=== PATIENT | female | born 1935 | race Caucasian/White ===

== ENCOUNTER → 2017-05-27 | Outpatient (CLI) | payer MEDICARE ==
--- NOTE | 2017-05-31 11:29 | MM ---
Reason for exam: screening (asymptomatic). Last mammogram was performed 1 year ago. History: Patient is postmenopausal and has history of other cancer at age 77. Physical Findings: A clinical breast exam by your physician is recommended on an annual basis and results should be correlated with mammographic findings. MG 3D Screening Mammo W/Cad Bilateral CC and MLO view(s) were taken. Prior study comparison: May 24, 2016, bilateral MG 3d screening mammo w/cad. There are scattered fibroglandular densities. No significant changes when compared with prior studies. ASSESSMENT: Negative, BI-RAD 1 RECOMMENDATION: Routine screening mammogram of both breasts in 1 year.
== END | disposition home or self-care (01) ==
LOC: RADMAMWWP 10:44
PROVIDERS: ATTEND Internal Medicine
DX: Z12.31 Encounter for screening mammogram for malignant neoplasm of breast (principal)
CPT/HCPCS: 77063; G0202

== ENCOUNTER 2017-12-10 10:03 | Emergency (ER) | payer MEDICARE ==
[2017-12-10 10:08] VITALS: RESP 18
--- NOTE | 2017-12-10 10:25 | ED ---
URI HPI - General Chief Complaint: Upper Respiratory Infection Stated Complaint: Sore throat Time Seen by Provider: 12/10/17 10:11 Source: patient Mode of arrival: ambulatory Limitations: no limitations - History of Present Illness Initial Comments: This is an 82-year-old female who presents with a chief complaint of sore throat , hoarseness and upper respiratory infection. The symptoms began 2 days ago. She began taking Augmentin yesterday prescribed by her primary care provider for an upper respiratory infection, and has taken 2 doses so far. She reports her cough is better. However, she woke up today with a hoarse voice, pain with phonation, and states that her mouth feels dry. She denies shortness of breath, nausea, vomiting, diarrhea, fevers, or chills. The patient has a significant cardiac history and currently has a pacemaker. She has a scheduled cardiac procedure with Dr. Burkett on 12/12/2017, and is concerned she will not be able to have the procedure if she is still sick. - Related Data Home Medications Medication Instructions Recorded Confirmed ALPRAZolam [Xanax] 0.25 mg PO TID PRN 09/21/17 12/10/17 Aspirin [Adult Low Dose Aspirin EC] 81 mg PO BID 09/21/17 12/10/17 Atorvastatin [Lipitor] 40 mg PO DAILY 09/21/17 12/10/17 Enalapril [Vasotec] 5 mg PO DAILY 09/21/17 12/10/17 Nitroglycerin Sl Tabs [Nitrostat] 0.4 mg SUBLINGUAL Q5M PRN 09/21/17 12/10/17 SILVER sulfADIAZINE Cream 1 applic TOPICAL DAILY 09/21/17 12/10/17 [Silvadene 1% Cream] metFORMIN HCL [Glucophage] 250 mg PO DAILY 09/21/17 12/10/17 Carvedilol [Coreg] 6.25 mg PO BID 12/01/17 12/10/17 Amiodarone [Cordarone] 200 mg PO DAILY 12/10/17 12/10/17 Spironolactone [Aldactone] 25 mg PO DAILY 12/10/17 12/10/17 Previous Rx's Medication Instructions Recorded Clopidogrel [Plavix] 75 mg PO DAILY #30 tab 09/25/17 Allergies Allergy/AdvReac Type Severity Reaction Status Date / Time No Known Allergies Allergy Verified 12/10/17 11:29 Review of Systems ROS Statement: Those systems with pertinent positive or pertinent negative responses have been documented in the HPI. ROS Other: All systems not noted in ROS Statement are negative. Past Medical History Past Medical History: Hyperlipidemia, Hypertension, Myocardial Infarction (VA), Osteoarthritis (OA), Skin Disorder, Vascular Disorder Additional Past Medical History / Comment(s): See Dr Burkett's H&P. Arthritis diffuse, chronic low back pain, sinus problems, hx cellulitis neck, eczema. VA x2 - Last Myocardial Infarction Date:: 2013 History of Any Multi-Drug Resistant Organisms: None Reported Past Surgical History: Back Surgery, Heart Catheterization With Stent, Joint Replacement, Pacemaker Additional Past Surgical History / Comment(s): PCI with a total of 3 stents, bilateral total knee replacements, low back surgery x2, R great toe bunionectomy with pin, thyroglossal duct excision for benign neck mass, colonoscopy, hemorrhoidectomy, bilateral cataract removals with lens implants. Pacemaker implanted 09/24/17. Past Anesthesia/Blood Transfusion Reactions: No Reported Reaction Date of Last Stent Placement:: 2013 Type of Cardiac Device: Permanent Pacemaker Device Placement Date:: 09/24/17 Past Psychological History: No Psychological Hx Reported Smoking Status: Never smoker Past Alcohol Use History: None Reported Past Drug Use History: None Reported - Past Family History Father Family Medical History: Cancer Additional Family Medical History / Comment(s): Father had throat cancer. He was a smoker. Mother Family Medical History: Myocardial Infarction (VA) Additional Family Medical History / Comment(s): Mother of a VA at the age of 71 yrs. General Exam Limitations: no limitations General appearance: alert, in no apparent distress Head exam: Present: atraumatic, normocephalic, normal inspection ENT exam: Present: normal exam, normal oropharynx (no inflammation, erythema, or uvula deviation noted.), mucous membranes moist Neck exam: Present: tenderness (tender in the left tonsillar region without lymphadenopathy) Respiratory exam: Present: decreased breath sounds. Absent: chest wall tenderness, accessory muscle use Cardiovascular Exam: Present: regular rate, normal rhythm, normal heart sounds. Absent: systolic murmur, diastolic murmur, rubs, gallop, clicks Extremities exam: Present: normal inspection, full ROM, normal capillary refill. Absent: tenderness, pedal edema, joint swelling, calf tenderness Back exam: Present: normal inspection Neurological exam: Present: alert, oriented X3, CN II-XII intact Psychiatric exam: Present: normal affect, normal mood Skin exam: Present: warm, dry, intact, normal color. Absent: rash Course Vital Signs 12/10/17 10:06 Temperature 97.5 F L Pulse Rate 86 Respiratory 18 Rate Blood Pressure 148/67 O2 Sat by Pulse 96 Oximetry Medical Decision Making - Medical Decision Making 82-year-old female presented emergency department for URI symptoms, hoarse voice. Patient's x-ray shows no evidence morning she is concerned because she is to have a procedure on Tuesday. Influenza was done which is negative. Patient will continue her antibiotics as prescribed by her primary care physician she denies any sore gargles and take [id number] lozenges. Return parameters were discussed. - Lab Data Lab Results 12/10/17 Range/Units 11:03 Influenza Type A RNA Not Detected (Not Detectd) Influenza Type B (PCR) Not Detected (Not Detectd) Disposition Clinical Impression: Laryngitis, Upper respiratory infection Disposition: HOME SELF-CARE Condition: Stable Instructions: Upper Respiratory Infection (ED) Additional Instructions: Please return to the Emergency Department if symptoms worsen or any other concerns. Referrals: Darek Upton MD [Primary Care Provider] - 1-2 days Time of Disposition: 11:38
--- NOTE | 2017-12-10 10:55 | XR ---
EXAMINATION TYPE: XR chest 2V DATE OF EXAM: 12/10/2017 HISTORY: Cough/pain. REFERENCE: Previous study dated 09/24/2017. FINDINGS: The lungs are overinflated. There is unipolar pacemaker place on the left. Heart size upper limits of normal. There is a calcified granuloma in the right midlung. Lungs appear otherwise clear. Pleural spaces are clear. IMPRESSION: 1. COPD. 2. EVIDENCE OF OLD GRANULOMATOUS DISEASE. 3. BORDERLINE CARDIOMEGALY.
[2017-12-10 11:59] VITALS: BP 122/58; PULSE 79; TEMP 97.6
== END 2017-12-10 11:57 | disposition home or self-care (01) ==
LOC: EC 10:03
DX: J04.0 Acute laryngitis (principal); J06.9 Acute upper respiratory infection, unspecified; E78.5 Hyperlipidemia, unspecified; I10 Essential (primary) hypertension; I25.2 Old myocardial infarction; Z79.82 Long term (current) use of aspirin; Z79.84 Long term (current) use of oral hypoglycemic drugs; Z79.899 Other long term (current) drug therapy
CPT/HCPCS: 71046; 87502; 99283

== ENCOUNTER 2017-12-12 06:41 | Day surgery (SDC) | payer MEDICARE ==
[2017-12-01 12:09] VITALS: BMI 22.4
[2017-12-12] MEDS: SODIUM CHLORIDE 0.9% 1,000 ML IV SCH (07:18)
[2017-12-12 07:31] LABS: Glucose,Whole Blood 121 mg/dL (75-99)
[2017-12-12] MEDS ORDERED: fentaNYL (PF) 50 MCG/ML 2 ML AMP ONE (08:31)
[2017-12-12] MEDS ORDERED: HEPARIN SODIUM,PORCINE 10,000 UNIT/ML 1 ML VIAL ONE (08:31)
[2017-12-12] MEDS ORDERED: PHENYLEPHRINE-0.9% NACL SYG 1 MG/10 ML SYRINGE ONE (08:31)
[2017-12-12] MEDS ORDERED: LIDOCAINE 1% INJ 10MG/ML (20 ML MDV) ONE (08:31)
[2017-12-12] MEDS ORDERED: ePHEDrine SULFATE/0.9% NACL/PF 50 MG/5 ML SYRINGE IV ONE (08:31)
[2017-12-12] MEDS ORDERED: MIDAZOLAM 2 MG/2 ML VIAL ONE (08:31)
[2017-12-12] MEDS ORDERED: ISOPROTERENOL 250 MCG/1.25 ML SYR IV ONE (08:31)
[2017-12-12] MEDS ORDERED: PROPOFOL 10 MG/ML 20 ML VIAL IV ONE (08:31)
[2017-12-12] MEDS ORDERED: ceFAZolin 2,000 MG in DEXTROSE/WATER 1 50ML.BAG IVPB STA (08:48)
[2017-12-12] MEDS ORDERED: ceFAZolin IN SWFI 2 GM/20 ML SYRINGE IVP ONE (09:00)
[2017-12-12] MEDS ORDERED: LIDOCAINE 2% INJ 20 MG/ML SQ ONE (09:11)
[2017-12-12] MEDS ORDERED: IODIXANOL 320 MG/ML 100 ML INTRAARTER ONE (09:18)
[2017-12-12] MEDS ORDERED: HEPARIN SOD,PORK IN 0.45% NACL 25,000 UNIT in 0.45% NACL 1 500ML.BAG IV ONE (09:20)
[2017-12-12] MEDS ORDERED: HEPARIN SODIUM (1,000 UNIT/ML) 1,000 UNIT in SODIUM CHLORIDE 0.9% 1,000 ML IRRIGATION ONE (09:36)
[2017-12-12] MEDS ORDERED: ALPRAZolam 0.25 MG TAB PO PRN (13:08)
[2017-12-12] MEDS ORDERED: HYDROcodone/APAP 5-325MG 1 EACH TAB PO PRN (13:10)
[2017-12-12] MEDS ORDERED: ACETAMINOPHEN TAB 325 MG TAB PO PRN (13:10)
--- NOTE | 2017-12-12 13:58 | P.PCN ---
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 Written informed consent was obtained prior to the procedure. The single chamber ICD was interrogated and reprogrammed. ICD therapies were and detections were turned off. At the end of the procedure ICD was interrogated impedance was stable. VT and VF therapies were turned on. Tachycardia parameters were enabled Under conscious sedation to venous sheaths were placed in the left femoral vein , on venous sheaths in the right femoral vein and on arterial sheath, a long sheath in the right femoral artery Diagnostic catheters placed in the heart. High right atrium, His bundle, RV, coronary sinus, left ventricle. Intracardiac echo catheter placed. LV mapping initially with the Pentaray catheter Sinus cycle length 877 ms, [place] interval 166 ms, QRS 106 ms, QT 401 ms. AH interval 86 ms, HV interval 56 ms. AV node Wenckebach block 430 ms VA Wenckebach block greater than 560 ms despite Isuprel Sinus recovery times at the cycle length of 400 ms was 478 ms Pacing the high right atrium coronary sinus and right ventricle and left ventricle 3-D anatomical mapping of the left ventricle was performed. The aortic root, LV outflow and the left ventricle anatomic shell was created with intracardiac echo. The scar was identified on intracardiac echo. This was an inferior apical scar just beyond the inferior peppery muscles. It extended at least to the mid to distal LV anteriorly The Pentaray cath was placed in the left ventricle retrogradely and voltage mapping of the left frontal was performed. An electric anatomic map was created. Late potentials were sought and tagged. The scar based linear VT ablation was performed, guided by late potentials. This mostly appeared as a single scar of less than 0.2 mV with an anterior extension. The scar borders were encircled Following complete anatomic ablation for EP study was performed on Isuprel Ventricular extra stimulation from the right ventricle as well as from the left ventricle was performed. Burst stimulation from the right ventricle is performed on Isuprel No VT was induced on or off Isuprel At the end of the procedure intracardiac echo revealed absence of pericardial effusion Patient out of the procedure well without any acute complications. Patient received IV heparin for the procedure maintaining an ACT greater than 300 seconds. This was reversed at the end of the procedure with protamine 20 mg of IV Lasix was given Intake output maintained through the procedure Procedures performed Single-chamber ICD interrogation with reprogramming before and after the procedure Comprehensive diagnostic EP study with attempted arrhythmia induction Program stimulation following Isuprel LV pacing and recording CS pacing and recording 3-D electro-anatomic mapping/CARTO Intracardiac echocardiography VT ablation, LV VT Plan ELIQUIS 5 mg twice daily for one month only then stop Hold aspirin for one month only then restart Continue Plavix continue heart failure medications continue CAD medications Reduce amiodarone from 200 mg down to 100 mg by mouth daily and consider stopping it in about 6-8 weeks Anesthesia: GETA Condition: stable Disposition: observation
[2017-12-12] MEDS ORDERED: ACETAMINOPHEN IV (For NPO) 1,000 MG/100 ML VIAL IVPB ONE (14:02)
[2017-12-12 14:12] LABS: Glucose,Whole Blood 104 mg/dL (75-99)
[2017-12-12] MEDS ORDERED: ACETAMINOPHEN IV (For NPO) 1,000 MG in EMPTY BAG 1 BAG IVPB ONE (14:30)
[2017-12-12] MEDS ORDERED: SODIUM CHLORIDE 0.9% 1,000 ML IV ONE ×2 (14:47→14:48)
[2017-12-12] MEDS: LACTATED RINGERS 1,000 ML IV SCH (16:41)
[2017-12-12 17:12] LABS: Glucose,Whole Blood 133 mg/dL (75-99)
[2017-12-12] MEDS: ASPIRIN 81 MG PO SCH (20:34)
[2017-12-12] MEDS: CARVEDILOL 6.25 MG TAB PO SCH (20:35)
[2017-12-12 20:49] LABS: Glucose,Whole Blood 149 mg/dL (75-99)
[2017-12-12] MEDS ORDERED: ATORVASTATIN 40 MG TAB PO SCH (21:00)
[2017-12-13 00:09] VITALS: RESP 16
[2017-12-13 06:54] LABS: Glucose,Whole Blood 112 mg/dL (75-99)
[2017-12-13] MEDS: LACTATED RINGERS 1,000 ML IV SCH (08:16)
[2017-12-13] MEDS: SODIUM CHLORIDE 0.9% 1,000 ML IV SCH (08:17)
[2017-12-13] MEDS: CARVEDILOL 6.25 MG TAB PO SCH (08:23)
[2017-12-13] MEDS: ASPIRIN 81 MG PO SCH (08:24)
[2017-12-13] MEDS ORDERED: SPIRONOLACTONE 25 MG TAB PO SCH (09:00)
[2017-12-13] MEDS ORDERED: CLOPIDOGREL 75 MG TAB PO SCH (09:00)
[2017-12-13] MEDS ORDERED: LISINOPRIL 10 MG TAB PO SCH (09:00)
[2017-12-13] MEDS ORDERED: AMIODARONE 200 MG TAB PO SCH (09:00)
--- NOTE | 2017-12-13 11:18 | P.DS ---
Providers Attending physician: Jorge Burkett Primary care physician: Darek Upton Pertinent Studies: Discharge summary Patient is doing well from a cardiac standpoint. She denies any pleuritic chest discomfort no undue shortness of breath no dizziness lightheadedness or palpitations. She did walk to the bathroom a few times. Groins of healed well. 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 Demarco in 1 week post VT ablation Plan - Discharge Summary Discharge Rx Participant: No New Discharge Prescriptions: New Amiodarone [Cordarone] 100 mg PO DAILY #90 tab Apixaban [Eliquis] 5 mg PO BID #60 tab Discontinued Aspirin [Adult Low Dose Aspirin EC] 81 mg PO BID Amiodarone [Cordarone] 200 mg PO DAILY No Action ALPRAZolam [Xanax] 0.25 mg PO TID PRN PRN Reason: Anxiety metFORMIN HCL [Glucophage] 250 mg PO DAILY Atorvastatin [Lipitor] 40 mg PO HS Enalapril [Vasotec] 5 mg PO DAILY Nitroglycerin Sl Tabs [Nitrostat] 0.4 mg SUBLINGUAL Q5M PRN PRN Reason: Chest Pain SILVER sulfADIAZINE Cream [Silvadene 1% Cream] 1 applic TOPICAL DAILY Clopidogrel [Plavix] 75 mg PO DAILY #30 tab Carvedilol [Coreg] 6.25 mg PO BID Spironolactone [Aldactone] 25 mg PO DAILY Discharge Medication List ALPRAZolam [Xanax] 0.25 mg PO TID PRN 09/21/17 [History] Atorvastatin [Lipitor] 40 mg PO HS 09/21/17 [History] Enalapril [Vasotec] 5 mg PO DAILY 09/21/17 [History] Nitroglycerin Sl Tabs [Nitrostat] 0.4 mg SUBLINGUAL Q5M PRN 09/21/17 [History] SILVER sulfADIAZINE Cream [Silvadene 1% Cream] 1 applic TOPICAL DAILY 09/21/17 [ History] metFORMIN HCL [Glucophage] 250 mg PO DAILY 09/21/17 [History] Clopidogrel [Plavix] 75 mg PO DAILY #30 tab 09/25/17 [Rx] Carvedilol [Coreg] 6.25 mg PO BID 12/01/17 [History] Spironolactone [Aldactone] 25 mg PO DAILY 12/10/17 [History] Amiodarone [Cordarone] 100 mg PO DAILY #90 tab 12/12/17 [Rx] Apixaban [Eliquis] 5 mg PO BID #60 tab 12/12/17 [Rx] Follow up Appointment(s)/Referral(s): Ajith Demarco MD [STAFF PHYSICIAN] - 1 Week Activity/Diet/Wound Care/Special Instructions: Post EP study - Ablation instructions 1. Keep access sites dry for 2 days. 2. No heavy lifting or straining for 2 days. 3. Avoid bending the hips repeatedly for 2 days. 4. You may go up and down stairs slowly Call if the following is noted 1. Bleeding, increasing swelling or pain at the access sites. 2. Increasing chest discomfort, especially upon taking a deep breath. 3. Increasing shortness of breath, at rest or with exertion. 4. Undue cough / phlegm 5. Difficulty or pain while swallowing. 6. Pain or change in color in the extremities. 7. Fever, chills, rigors. 8. Increasing headache or neurologic symptoms. 9. Dizziness, fainting, palpitations Reduce amiodarone to 100 mg by mouth daily continue all other medications ELIQUIS 5 mg twice daily for one month only Hold aspirin for one month only then resume after ELIQUIS is discontinued Continue Plavix Continue all other medications [employer] Eliquis at [facility] - coupon is there to receive a free month of Eliquis Discharge Disposition: HOME SELF-CARE
[2017-12-13 11:36] VITALS: BP 115/55; PULSE 78; TEMP 98.5
[2017-12-13] MEDS ORDERED: APIXABAN 5 MG TAB PO ONE (12:00)
[2017-12-13 12:21] LABS: Glucose,Whole Blood 136 mg/dL (75-99)
--- NOTE | 2017-12-13 13:39 | P.PCN ---
Preoperative Diagnosis: Post VT ablation device interrogation Single chamber ICD [employer] [id number] We pacing threshold 0.5 mV at 0.5 ms, R waves greater than 12 mV, pacing impedance 700 ohms and high-voltage impedance 75 ohms Appropriate antitachycardia pacing cardioversion and defibrillation programming changes made to the ATP upper cutoff rate to 200 ms and and distorted EGM configuration. Impedance monitoring on
[2017-12-14] MEDS ORDERED: metFORMIN 500 MG TAB PO SCH (10:00)
== END 2017-12-13 15:06 | disposition home or self-care (01) ==
LOC: CATHEP 06:41 → 3OBS 12:53 → CATHEP 12-13 15:06
PROVIDERS: ATTEND Internal Medicine Clinical Cardiac Electrophysiology
DX: I47.2 Ventricular tachycardia (principal); I25.2 Old myocardial infarction; I25.10 Atherosclerotic heart disease of native coronary artery without angina pectoris; I10 Essential (primary) hypertension; I25.5 Ischemic cardiomyopathy; Z87.891 Personal history of nicotine dependence; E78.5 Hyperlipidemia, unspecified; E78.00 Pure hypercholesterolemia, unspecified; Z82.49 Family history of ischemic heart disease and other diseases of the circulatory system; Z95.5 Presence of coronary angioplasty implant and graft; Z95.810 Presence of automatic (implantable) cardiac defibrillator; E11.9 Type 2 diabetes mellitus without complications; Z79.84 Long term (current) use of oral hypoglycemic drugs; F41.9 Anxiety disorder, unspecified; Z79.02 Long term (current) use of antithrombotics/antiplatelets; Z79.82 Long term (current) use of aspirin; Z79.899 Other long term (current) drug therapy
CPT/HCPCS: 93623; 93662; 93654; 85347; C1894; C1769 ×2; C1731; C1759; C1893; C1732; C1730; J2001 ×2; J2250; J1644 ×3; Q9967; J3010; J0131; J2370; J2704; J0690

== ENCOUNTER → 2018-08-29 | Outpatient (CLI) | payer MEDICARE ==
--- NOTE | 2018-08-29 09:50 | US ---
EXAMINATION TYPE: US liver DATE OF EXAM: 08/29/2018 COMPARISON: US 10/06/2017 CLINICAL HISTORY: R94.5 Abn liver function test. EXAM MEASUREMENTS: Liver Length: 15.1 cm Gallbladder Wall: 0.1 cm CBD: 1.1 cm Right Kidney: 9.5 x 4.1 x 4.2 cm Pancreas: Tail obscured by overlying bowel gas Liver: Heterogeneous, Slightly nodular contour. No hepatic masses seen. Gallbladder: wnl Evidence for sonographic Echevarria's sign: No CBD: Dilated as seen on the prior exam Right Kidney: No hydronephrosis or masses seen IMPRESSION: 1. Persistent intrahepatic biliary ductal dilatation as seen on the ultrasound dated 10/06/2017, jimmy trevizo in degree. MRCP could evaluate for biliary stricture, choledocholithiasis, or ampullary mass MRCP with contrast is performed. 2. Coarsened hepatic echotexture suggesting underlying hepatocellular disease. No focal hepatic ambar s seen on today's examination.
== END | disposition home or self-care (01) ==
LOC: RADUSWWP 07:27
PROVIDERS: ATTEND Internal Medicine
DX: K83.8 Other specified diseases of biliary tract (principal)
CPT/HCPCS: 76705

== ENCOUNTER → 2018-09-18 | Outpatient (CLI) | payer MEDICARE ==
--- NOTE | 2018-09-18 23:12 | BD ---
EXAMINATION TYPE: Axial Bone Density DATE OF EXAM: 09/18/2018 COMPARISON: NONE CLINICAL HISTORY: 83-year-old female postmenopausal screening Height: 65 Weight: 142.9 FRAX RISK QUESTIONS: Alcohol (3 or more units per day): no Family History (Parent hip fracture): no Glucocorticoids (More than 3mos): no (Ex: prednisone, prednisolone, methylprednisolone, dexamethasone, and hydrocortisone). History of Fracture in Adulthood: no Secondary Osteoporosis: 1. Type 1 Diabetes: no 2. Hyperthyroidism: no 3. Menopause before 45: yes 4. Malnutrition: no 5. Chronic liver disease: no Rheumatoid Arthritis: yes Current Tobacco Use: no RISK FACTORS HISTORY OF: Surgery to Spine/Hip(right/left)/Wrist (right/left): lumbar spine When: age 40and age 42 Family History of Osteoporosis: no Active: yes Diet low in dairy products/other sources of calcium: no Postmenopausal woman: age 40 Lost more than 2 inches in height since high school: no MEDICATIONS: heart meds, cortisone shot every 3 months in shoulder Additional History: EXAM MEASUREMENTS: Bone mineral densitometry was performed using the [employer] System. Bone mineral density about the R hip (g/cm2): 0.840 Bone mineral density about the L hip (g/cm2): 0.796 T Score values are as follows: -----R Neck: -1.4 -----L Neck: -1.7 -----R Total: -0.9 -----L Total: -1.3 Bone mineral density has: decreased -7.8 % since study of: 4. Bone mineral density about the L Wrist (g/cm2): 0.540 T Score values are as follows: -----Dist. R+U: -2.4 -----Prox. R+U: -1.5 -----Radius total: -2.2 Bone mineral density baseline IMPRESSION: Osteopenia (T Score between -2.5 and -1) as measured in the left wrist and bilateral hips. There is slightly increased risk of fracture and the patient may be considered for treatment. Re-Screen 2-5 years. NOTE: T-SCORE=SD OF THE YOUNG ADULT MEAN.
--- NOTE | 2018-09-19 13:43 | MM ---
Reason for exam: screening (asymptomatic). Last mammogram was performed 1 year and 4 months ago. History: Patient is postmenopausal and has history of other cancer at age 77. Physical Findings: A clinical breast exam by your physician is recommended on an annual basis and results should be correlated with mammographic findings. MG 3D Screening Mammo W/Cad Bilateral CC and MLO view(s) were taken. Prior study comparison: May 27, 2017, bilateral MG 3d screening mammo w/cad. May 24, 2016, bilateral MG 3d screening mammo w/cad. The breast tissue is heterogeneously dense. This may lower the sensitivity of mammography. There are benign appearing round vascular calcifications bilaterally. There is no dominant lesion. There is no discrete abnormality. New left axillary pacemaker noted. ASSESSMENT: Benign, BI-RAD 2 RECOMMENDATION: Routine screening mammogram of both breasts in 1 year.
== END | disposition home or self-care (01) ==
LOC: RADMAMWWP 15:03
PROVIDERS: ATTEND Internal Medicine
DX: Z12.31 Encounter for screening mammogram for malignant neoplasm of breast (principal); M85.88 Other specified disorders of bone density and structure, other site; N95.1 Menopausal and female climacteric states
CPT/HCPCS: 77063; 77067; 77080

== ENCOUNTER → 2018-10-05 | Outpatient (CLI) | payer MEDICARE ==
[2018-10-05 20:07] LABS: Albumin 4.6 g/dL (3.80-4.90); Albumin/Globulin Ratio 2.56 (1.20-2.10); Anion Gap 9.7 mmol/L (4.00-12.00); Calcium 10.1 mg/dL (8.7-10.3); Carbon Dioxide 25.3 mmol/L (21.6-31.8); Globulin 1.8 g/dL (2.1-3.7); Potassium 4.5 mmol/L (3.5-5.5); Total Bilirubin 0.4 mg/dL (0.3-1.2); Total Protein 6.4 g/dL (6.2-8.2)
[2018-10-05 21:16] LABS: Hepatitis C IgG Antibody Non-Reactive (Non-Reactive)
== END | disposition home or self-care (01) ==
LOC: LABWHC1 12:00
PROVIDERS: ATTEND Internal Medicine Gastroenterology
DX: R94.5 Abnormal results of liver function studies (principal)
CPT/HCPCS: 36415; 80053; 86803; 87340

== ENCOUNTER → 2019-05-01 | Outpatient (CLI) | payer MEDICARE ==
--- NOTE | 2019-05-02 07:12 | US ---
EXAMINATION TYPE: US kidneys/renal and bladder DATE OF EXAM: 05/01/2019 COMPARISON: NONE CLINICAL HISTORY: R10.9 TARA FLANK PAIN. Back pain x 10 days EXAM MEASUREMENTS: Right Kidney: 9.5 x 4.1 x 5.1 cm Left Kidney: 9.4 x 4.6 x 4.2 cm Right Kidney: wnl Left Kidney: wnl Bladder: wnl Bilateral Jets seen: yes There is no evidence for hydronephrosis at this point in time. No nephrolithiasis is seen. No ambar s are identified. The urinary bladder is anechoic. Bilateral ureteral jets are seen. IMPRESSION: No hydronephrosis or nephrolithiasis seen.
== END | disposition home or self-care (01) ==
LOC: RADUSWWP 15:15
PROVIDERS: ATTEND Internal Medicine
DX: R10.9 Unspecified abdominal pain (principal)
CPT/HCPCS: 76770

== ENCOUNTER → 2019-08-02 | Outpatient (CLI) | payer MEDICARE ==
--- NOTE | 2019-08-03 08:11 | XR ---
EXAMINATION TYPE: XR lumbosacral spine min 4V DATE OF EXAM: 08/02/2019 CLINICAL HISTORY: Low back pain TECHNIQUE: Frontal, lateral, and oblique images of the lumbar spine are obtained. COMPARISON: None FINDINGS: There are 5 lumbar type vertebral bodies identified. Postsurgical changes are seen at L5- S1. There is diffuse osseous demineralization. There is a reverse S-shaped scoliosis of the visualize d thoracolumbar spine. Large amount of retained fecal stasis in the visualized nondilated bowel. Calc ifications are seen in the region of the pancreas, sequela chronic pancreatitis. Extensive atheromato us changes of the abdominal aorta. Oblique images demonstrate neural foraminal narrowing bilaterally at L2-L3 and L3-L4. Lateral image d emonstrates grade 1 anterolisthesis of L1 and L2 and multiple posterior projecting osteophytes as wel l as anterior projecting osteophytes, intervertebral disc space narrowing, facet arthropathy, and end plate sclerosis. Vertebral body heights are overall maintained. IMPRESSION: 1. No acute fracture or lumbar spine. 2. Extensive multilevel degenerative disc disease of the lumbar spine. Grade 1 anterolisthesis of L1 on L2 is likely on a degenerative basis. 3. Sequela chronic pancreatitis, densely calcified aorta, and large degree of colonic fecal stasis ar e incidentally seen. 4. Reverse S-shaped scoliosis of the visualized thoracolumbar spine.
== END | disposition home or self-care (01) ==
LOC: RADXRMAIN 16:48
PROVIDERS: ATTEND Internal Medicine
DX: M51.36 Other intervertebral disc degeneration, lumbar region (principal); M43.16 Spondylolisthesis, lumbar region; K86.1 Other chronic pancreatitis; I70.0 Atherosclerosis of aorta; K59.8 Other specified functional intestinal disorders; M41.85 Other forms of scoliosis, thoracolumbar region
CPT/HCPCS: 72110

== ENCOUNTER → 2019-10-15 | Outpatient (CLI) | payer MEDICARE ==
--- NOTE | 2019-10-16 10:33 | MM ---
Reason for exam: screening (asymptomatic). Last mammogram was performed 1 year and 1 month ago. History: Patient is postmenopausal and has history of other cancer at age 77. Physical Findings: A clinical breast exam by your physician is recommended on an annual basis and results should be correlated with mammographic findings. MG 3D Screening Mammo W/Cad Bilateral CC and MLO view(s) were taken. Prior study comparison: September 18, 2018, bilateral MG 3d screening mammo w/cad. May 27, 2017, bilateral MG 3d screening mammo w/cad. The breast tissue is heterogeneously dense. This may lower the sensitivity of mammography. There are benign appearing vascular calcifications bilaterally. There is no discrete abnormality. ASSESSMENT: Benign, BI-RAD 2 RECOMMENDATION: Routine screening mammogram of both breasts in 1 year.
== END | disposition home or self-care (01) ==
LOC: RADMAMWWP 14:43
PROVIDERS: ATTEND Internal Medicine
DX: Z12.31 Encounter for screening mammogram for malignant neoplasm of breast (principal)
CPT/HCPCS: 77063; 77067

== ENCOUNTER 2019-12-15 13:20 | Emergency (ER) | payer MEDICARE ==
[2019-12-15 13:35] VITALS: BP 128/71; PULSE 84; RESP 18; TEMP 97.9
--- NOTE | 2019-12-15 13:51 | ED ---
General Adult HPI - General Chief complaint: Skin/Abscess/Foreign Body Stated complaint: leg injury Time Seen by Provider: 12/15/19 13:33 Source: patient Mode of arrival: ambulatory Limitations: no limitations - History of Present Illness Initial comments: Dictation was produced using [employer] dictation software. please excuse any grammatical, word or spelling errors. Chief Complaint: 84-year-old female presents with one check. History of Present Illness: 84 yo female multiple comorbidities presents for wound check. Patient suffered a skin injury approximately 2 weeks ago. She just completed a course of antibiotics. Patient was initially seen after suffering an injury to her right lower extremity from a car door. She suffered an avulsion wound. Patient has delicate skin. She seen her primary care doctor shortly after that was placed on a course of doxycycline. Patient was concerned about the appearance of her waking to the emergency department. She denies any worsening pain. No redness. Denies any constitutional symptoms. The ROS documented in this emergency department record has been reviewed and confirmed by me. Those systems with pertinent positive or negative responses have been documented in the HPI. All other systems are other negative and/or noncontributory. PHYSICAL EXAM: General Impression: Alert and oriented x3, not in acute distress HEENT: Normocephalic atraumatic, extra-ocular movements intact, pupils equal and reactive to light bilaterally, mucous membranes moist. Cardiovascular: Heart regular rate and rhythm, S1&S2 audible, no murmurs, rubs or gallops Chest: Lungs clear to auscultation bilaterally, no rhonchi, no wheeze, no rales Abdomen: Bowel sounds present, abdomen soft, non-tender, non-distended, no organomegaly Musculoskeletal: Pulses present and equal in all extremities, no peripheral edema Motor: no focal deficits noted Neurological: CN II-XII grossly intact, no focal motor or sensory deficits noted Skin: 2 x 2 centimeter lesion over the anterior right tibial area. There is good well-healing granulation tissue with some fibrinous exudates. No drainage or induration or surrounding erythema. Psych: Normal affect and mood ED course: 84-year-old female presents for wound check. Wound appears well. No signs of infection. Patient given dressing supplies. She is told to do dressing changes every 12 hours to follow-up with her primary care doctor. Discussed with patient what would warrant return to the emergency department or seek medical attention. Patient understandable agreeable to plan. - Related Data Home Medications Medication Instructions Recorded Confirmed ALPRAZolam [Xanax] 0.25 mg PO TID PRN 09/21/17 12/10/17 Atorvastatin [Lipitor] 40 mg PO HS 09/21/17 12/12/17 Enalapril [Vasotec] 5 mg PO DAILY 09/21/17 12/12/17 Nitroglycerin Sl Tabs [Nitrostat] 0.4 mg SUBLINGUAL Q5M PRN 09/21/17 12/10/17 SILVER sulfADIAZINE Cream 1 applic TOPICAL DAILY 09/21/17 12/12/17 [Silvadene 1% Cream] metFORMIN HCL [Glucophage] 250 mg PO DAILY 09/21/17 12/12/17 Carvedilol [Coreg] 6.25 mg PO BID 12/01/17 12/12/17 Spironolactone [Aldactone] 25 mg PO DAILY 12/10/17 12/12/17 Previous Rx's Medication Instructions Recorded Clopidogrel [Plavix] 75 mg PO DAILY #30 tab 09/25/17 Amiodarone [Cordarone] 100 mg PO DAILY #90 tab 12/12/17 Apixaban [Eliquis] 5 mg PO BID #60 tab 12/12/17 Allergies Allergy/AdvReac Type Severity Reaction Status Date / Time No Known Allergies Allergy Verified 12/15/19 13:35 Review of Systems ROS Statement: Those systems with pertinent positive or pertinent negative responses have been documented in the HPI. ROS Other: All systems not noted in ROS Statement are negative. Past Medical History Past Medical History: Hyperlipidemia, Hypertension, Myocardial Infarction ([place]), Osteoarthritis (OA), Skin Disorder, Vascular Disorder Additional Past Medical History / Comment(s): See Dr Burkett's H&P. Arthritis diffuse, chronic low back pain, sinus problems, hx cellulitis neck, eczema. [place] x2 - Last Myocardial Infarction Date:: 2013 History of Any Multi-Drug Resistant Organisms: None Reported Past Surgical History: Back Surgery, Heart Catheterization With Stent, Joint Re placement, Pacemaker Additional Past Surgical History / Comment(s): PCI with a total of 3 stents, bilateral total knee replacements, low back surgery x2, R great toe bunionectomy with pin, thyroglossal duct excision for benign neck mass, colonoscopy, hemorrhoidectomy, bilateral cataract removals with lens implants. Pacemaker implanted 09/24/17. Past Anesthesia/Blood Transfusion Reactions: No Reported Reaction Date of Last Stent Placement:: 2013 Type of Cardiac Device: Permanent Pacemaker Device Placement Date:: 09/24/17 Past Psychological History: No Psychological Hx Reported Smoking Status: Never smoker Past Alcohol Use History: None Reported Past Drug Use History: None Reported - Past Family History Father Family Medical History: Cancer Additional Family Medical History / Comment(s): Father had throat cancer. He was a smoker. Mother Family Medical History: Myocardial Infarction ([place]) Additional Family Medical History / Comment(s): Mother of a [place] at the age of 71 yrs. General Exam Limitations: no limitations Course Vital Signs 12/15/19 13:32 Temperature 97.9 F Pulse Rate 84 Respiratory 18 Rate Blood Pressure 128/71 O2 Sat by Pulse 97 Oximetry Disposition Clinical Impression: Visit for wound check Disposition: HOME SELF-CARE Condition: Good Instructions (If sedation given, give patient instructions): Wound Infection (ED) Is patient prescribed a controlled substance at d/c from ED?: No Referrals: Darek Upton MD [Primary Care Provider] - 1-2 days Time of Disposition: 13:51
== END 2019-12-15 14:00 | disposition home or self-care (01) ==
LOC: EC 13:20
DX: Z48.00 Encounter for change or removal of nonsurgical wound dressing (principal); E78.5 Hyperlipidemia, unspecified; I10 Essential (primary) hypertension; I25.2 Old myocardial infarction; M19.90 Unspecified osteoarthritis, unspecified site; Z79.899 Other long term (current) drug therapy; Z95.5 Presence of coronary angioplasty implant and graft; Z96.653 Presence of artificial knee joint, bilateral; Z95.0 Presence of cardiac pacemaker
CPT/HCPCS: 99282

== ENCOUNTER → 2020-02-13 | Outpatient (CLI) | payer MEDICARE ==
--- NOTE | 2020-02-13 14:38 | US ---
EXAMINATION TYPE: US venous doppler duplex LE RT DATE OF EXAM: 02/13/2020 2:26 PM COMPARISON: NONE CLINICAL HISTORY: R lower extremity swelling R22.41. SIDE PERFORMED: Right TECHNIQUE: The lower extremity deep venous system is examined utilizing real time linear array sonog elsa with graded compression, doppler sonography and color-flow sonography. VESSELS IMAGED: External Iliac Vein (EIV) Common Femoral Vein Deep Femoral Vein Greater Saphenous Vein * Femoral Vein Popliteal Vein Small Saphenous Vein * Proximal Calf Veins (* superficial vessels) Right Leg: Negative for DVT IMPRESSION: No evidence for DVT at this time.
== END | disposition home or self-care (01) ==
LOC: RADUSMAIN 13:57
PROVIDERS: ATTEND Internal Medicine
DX: R22.41 Localized swelling, mass and lump, right lower limb (principal); Z88.0 Allergy status to penicillin

== ENCOUNTER 2020-06-08 12:55 | Emergency (ER) | payer MEDICARE ==
[2020-06-08 13:07] VITALS: BP 120/72; PULSE 85; RESP 18; TEMP 98.3
[2020-06-08] MEDS ORDERED: TOPICAL SKIN ADHESIVE 1 EACH AMP TOPICAL STA (13:16)
--- NOTE | 2020-06-08 13:19 | ED ---
Wound/Laceration HPI - General Chief Complaint: Wound/Laceration Stated Complaint: Arm injury Time Seen by Provider: 06/08/20 13:11 Source: patient, RN notes reviewed, old records reviewed Mode of arrival: ambulatory Limitations: no limitations - History of Present Illness Initial Comments: This is a 4-year-old female DF she presents today for evaluation of skin tear. Patient states she is well-controlled by dorsal foot skin tear to her left forearm. Minimal bleeding has had a bandage and wrapped currently no other issues or injuries noted. Patient has no other significant complaints. -: minutes(s) Extremity Location: Left: Forearm Place: home Patient Tetanus UTD: Yes Context: accidental Associated Symptoms: none - Related Data Home Medications Medication Instructions Recorded Confirmed ALPRAZolam [Xanax] 0.25 mg PO TID PRN 09/21/17 12/10/17 Atorvastatin [Lipitor] 40 mg PO HS 09/21/17 12/12/17 Enalapril [Vasotec] 5 mg PO DAILY 09/21/17 12/12/17 Nitroglycerin Sl Tabs [Nitrostat] 0.4 mg SUBLINGUAL Q5M PRN 09/21/17 12/10/17 SILVER sulfADIAZINE Cream 1 applic TOPICAL DAILY 09/21/17 12/12/17 [Silvadene 1% Cream] metFORMIN HCL [Glucophage] 250 mg PO DAILY 09/21/17 12/12/17 Carvedilol [Coreg] 6.25 mg PO BID 12/01/17 12/12/17 Spironolactone [Aldactone] 25 mg PO DAILY 12/10/17 12/12/17 Previous Rx's Medication Instructions Recorded Clopidogrel [Plavix] 75 mg PO DAILY #30 tab 09/25/17 Amiodarone [Cordarone] 100 mg PO DAILY #90 tab 12/12/17 Apixaban [Eliquis] 5 mg PO BID #60 tab 12/12/17 Allergies Allergy/AdvReac Type Severity Reaction Status Date / Time No Known Allergies Allergy Verified 06/08/20 13:05 Review of Systems ROS Statement: Those systems with pertinent positive or pertinent negative responses have been documented in the HPI. ROS Other: All systems not noted in ROS Statement are negative. Past Medical History Past Medical History: Hyperlipidemia, Hypertension, Myocardial Infarction ([place]), Osteoarthritis (OA), Skin Disorder, Vascular Disorder Additional Past Medical History / Comment(s): See Dr Burkett's H&P. Arthritis diffuse, chronic low back pain, sinus problems, hx cellulitis neck, eczema. [place] x2 - Last Myocardial Infarction Date:: 2013 History of Any Multi-Drug Resistant Organisms: None Reported Past Surgical History: Back Surgery, Heart Catheterization With Stent, Joint Replacement, Pacemaker Additional Past Surgical History / Comment(s): PCI with a total of 3 stents, bilateral total knee replacements, low back surgery x2, R great toe bunionectomy with pin, thyroglossal duct excision for benign neck mass, colonoscopy, hemorrhoidectomy, bilateral cataract removals with lens implants. Pacemaker implanted 09/24/17. Past Anesthesia/Blood Transfusion Reactions: No Reported Reaction Date of Last Stent Placement:: 2013 Type of Cardiac Device: Permanent Pacemaker Device Placement Date:: 09/24/17 Past Psychological History: No Psychological Hx Reported Smoking Status: Never smoker Past Alcohol Use History: None Reported Past Drug Use History: None Reported - Past Family History Father Family Medical History: Cancer Additional Family Medical History / Comment(s): Father had throat cancer. He was a smoker. Mother Family Medical History: Myocardial Infarction ([place]) Additional Family Medical History / Comment(s): Mother of a [place] at the age of 71 yrs. General Exam - General Exam Comments Initial Comments: Small skin tear left forearm is approximated well Limitations: no limitations General appearance: alert, in no apparent distress Head exam: Present: atraumatic, normocephalic, normal inspection Eye exam: Present: normal appearance, PERRL, EOMI. Absent: scleral icterus, conjunctival injection, periorbital swelling ENT exam: Present: normal exam, mucous membranes moist Neck exam: Present: normal inspection. Absent: tenderness, meningismus, lymphadenopathy Respiratory exam: Present: normal lung sounds bilaterally. Absent: respiratory distress, wheezes, rales, rhonchi, stridor Cardiovascular Exam: Present: regular rate, normal rhythm, normal heart sounds. Absent: systolic murmur, diastolic murmur, rubs, gallop, clicks GI/Abdominal exam: Present: soft, normal bowel sounds. Absent: distended, tenderness, guarding, rebound, rigid Extremities exam: Present: normal inspection, full ROM, normal capillary refill. Absent: tenderness, pedal edema, joint swelling, calf tenderness Back exam: Present: normal inspection Neurological exam: Present: alert, oriented X3, CN II-XII intact Psychiatric exam: Present: normal affect, normal mood Skin exam: Present: warm, dry, intact, normal color. Absent: rash Course Vital Signs 06/08/20 13:05 Temperature 98.3 F Pulse Rate 85 Respiratory 18 Rate Blood Pressure 120/72 O2 Sat by Pulse 97 Oximetry - Reevaluation(s) Reevaluation #1: 06/08/20 13:17 Medical records reviewed Reevaluation #2: 06/08/20 13:17 Skin tear is cleaned approximated has Dermabond placed Procedures - Laceration Laceration #1 Consent Obtained: verbal consent Indication: other (skin tear) Size (cm): 6 Depth: simple, single layer Type of Sutures: other (dermabond) Size of Sutures: other (dermabond) Complications: pain Patient Tolerated Procedure: well Medical Decision Making - Medical Decision Making 84 female to the ER for evaluation patient resents today for evaluation regards to skin tear. Skin tear is repaired here in the ER patient can be discharged home Disposition Clinical Impression: Abrasion, Skin tear Disposition: HOME SELF-CARE Condition: Good Instructions (If sedation given, give patient instructions): Skin Tear (ED) Is patient prescribed a controlled substance at d/c from ED?: No Referrals: Darek Upton MD [Primary Care Provider] - 1-2 days
== END 2020-06-08 13:53 | disposition home or self-care (01) ==
LOC: EC 12:55
DX: S51.812A Laceration without foreign body of left forearm, initial encounter (principal); E78.5 Hyperlipidemia, unspecified; I10 Essential (primary) hypertension; I25.2 Old myocardial infarction; Z79.84 Long term (current) use of oral hypoglycemic drugs; Z79.899 Other long term (current) drug therapy; Z79.02 Long term (current) use of antithrombotics/antiplatelets; Z96.653 Presence of artificial knee joint, bilateral; W22.8XXA Striking against or struck by other objects, initial encounter; Y93.01 Activity, walking, marching and hiking
CPT/HCPCS: 12002; 99283

== ENCOUNTER → 2020-07-15 | Outpatient (CLI) | payer MEDICARE ==
--- NOTE | 2020-07-16 21:35 | CT ---
EXAMINATION TYPE: CT lumbar spine wo con DATE OF EXAM: 07/15/2020 3:23 PM COMPARISON: Lumbar radiograph 08/02/2019. HISTORY: chronic low back pain. Hx of lumbar sx years ago. CT DLP: 533.4 mGycm Automated exposure control for dose reduction was used. Unenhanced CT of the lumbar spine was performed. Bone and soft tissue window settings are submitted as well as coronal and sagittal reconstructions. Posterior postsurgical changes at L5, S1, and the inferior sacrum. Decreased osseous mineralization. Straightening of the lumbar lordosis. Diffuse disc space narrowing, degenerative endplate changes, osteophytic spurring, and facet arthropathy. There is compression deformity of T12 up to 30% involving the superior endplate, and inferior endplat es Schmorl's node. This compression deformity was not seen on 08/02/2019 radiograph comparison. L1-L2: Severe central stenosis. Severe right neural foramina narrowing. L2-L3: Mild central stenosis with right subarticular superimposed disc osteophyte. Moderate bilateral neural foramina narrowing. L3-L4: Indention of the ventral aspect of the thecal sac. Mild right and severe left neural foramina narrowing. L4-L5: Mild central stenosis. Severe left neural foramina narrowing. L5-S1: Central canal is obscured due to postsurgical hardware. No significant neural foramina narrowi ng. IMPRESSION: 1. Age-indeterminate compression deformity of the T12 superior endplate up to 30%, not present on 08/02/2019 radiograph comparison. Recommend correlation with point tenderness. 2. Marked degenerative changes of the lumbar spine, with severe central stenosis at L1-L2. Varying de grees of neural foramina narrowing. 3. Central canal L5-S1 is not evaluated due to post surgical hardware streak artifact.
== END | disposition home or self-care (01) ==
LOC: RADCTMAIN 15:05
PROVIDERS: ATTEND Physical Medicine & Rehabilitation
DX: M48.061 Spinal stenosis, lumbar region without neurogenic claudication (principal); M47.816 Spondylosis without myelopathy or radiculopathy, lumbar region; M96.1 Postlaminectomy syndrome, not elsewhere classified; M16.0 Bilateral primary osteoarthritis of hip; Z98.1 Arthrodesis status; Z95.0 Presence of cardiac pacemaker; Z95.9 Presence of cardiac and vascular implant and graft, unspecified
CPT/HCPCS: 72131

== ENCOUNTER → 2020-08-01 | Outpatient (CLI) | payer MEDICARE ==
--- NOTE | 2020-08-01 15:53 | NM ---
EXAMINATION TYPE: NM bone scan whole body DATE OF EXAM: 08/01/2020 COMPARISON: CT lumbar spine July 15, 2020 HISTORY: Mid and low back pain for a couple months. History of rheumatoid arthritis per patient. Hist ory of lumbosacral fusion surgery 40 years ago and bilateral knee replacement 10 years ago. Spondylos is, scoliosis, spondylolisthesis, post laminectomy syndrome, paresthesia of scan, and spinal stenosis follow-up were ordered. Delayed whole-body scanning was performed following the injection of 22.2 mCi Tc 99m MDP. Images acq uired 4 hours post injection. Anterior and posterior projection whole body images along with multiple projections of the thorax abdomen and pelvis. FINDINGS: S-shaped scoliotic curvature of thoracolumbar spine is present. Increased radiotracer uptake left mid to lower lumbar spine corresponds to increased narrowing and spurring at left L3-L4 level, similar m ild radiotracer uptake upper lumbar spine extending to right of midline corresponds to increased narr owing and sclerosis at the right L1-L2 level. There is more diffuse uptake involving the T11 vertebra, this could reflect acute compression type fr acture, correlate clinically and with dedicated plain films. Lucency from bilateral knee total arthroplasty is present. Asymmetric increased uptake right glenohumeral joint likely reflects advanced degenerative change at this level, correlate clinically. Increased focal radiotracer uptake left sternoclavicular joint could reflect product of degenerative change, correlate clinically. IMPRESSION: As above.
== END | disposition home or self-care (01) ==
LOC: RADNMMAIN 10:48
PROVIDERS: ATTEND Physical Medicine & Rehabilitation
DX: M41.85 Other forms of scoliosis, thoracolumbar region (principal); R93.7 Abnormal findings on diagnostic imaging of other parts of musculoskeletal system; S22.089A Unspecified fracture of T11-T12 vertebra, initial encounter for closed fracture; Z96.653 Presence of artificial knee joint, bilateral
CPT/HCPCS: 78306; A9503

== ENCOUNTER → 2020-08-01 | Outpatient (CLI) | payer MEDICARE ==
--- NOTE | 2020-08-01 11:20 | US ---
EXAMINATION TYPE: US kidneys/renal and bladder DATE OF EXAM: 08/01/2020 COMPARISON: US 05/01/2019 CLINICAL HISTORY: Bilateral Flank Pain R10.9. EXAM MEASUREMENTS: Right Kidney: 9.4 x 4.1 x 3.9 cm Left Kidney: 9.2 x 3.7 x 3.6 cm Right Kidney: No hydronephrosis or masses seen Left Kidney: No hydronephrosis or masses seen Bladder: Not fully distended Bilateral Jets seen: Right jet visualized only There is no evidence for hydronephrosis at this point in time. No nephrolithiasis is seen. No ambar s are identified. The urinary bladder is anechoic. Right jet visualized IMPRESSION: No distinct abnormality seen.
== END | disposition home or self-care (01) ==
LOC: RADUSWWP 10:27
PROVIDERS: ATTEND Internal Medicine
DX: R10.9 Unspecified abdominal pain (principal)
CPT/HCPCS: 76770

== ENCOUNTER → 2021-08-03 | Outpatient (CLI) | payer MEDICARE ==
--- NOTE | 2021-08-03 09:11 | CT ---
EXAMINATION TYPE: CT hip LT wo con DATE OF EXAM: 08/03/2021 COMPARISON: Whole body bone scan 2 days ago. HISTORY: Left hip pain CT DLP: 281.5 mGycm Automated exposure control for dose reduction was used. FINDINGS: Moderate axial joint space loss in the left hip. Mild subchondral cystic change involving the lateral aspect of the acetabulum with mild spurring. Just below this there is curvilinear calcification cons istent with calcific capsule. No acute fracture or dislocation is seen. Osseous structures are demine ralized. Femoral head shape is maintained. Mild spurring at the head neck junction or collar noted. M uscle bulk in the left thigh is maintained. There is small fat-containing left inguinal hernia. No gr oin adenopathy. Scattered left-sided pelvic phleboliths. No concerning pelvic fluid collection. Fusion screws lumbosa cral junction and sacrum noted on the localizer. IMPRESSION: Consistent with a calcified capsulitis, correlate clinically for CPPD. Other degenerative findings as detailed above.
== END | disposition home or self-care (01) ==
LOC: RADCTMAIN 06:40
PROVIDERS: ATTEND Internal Medicine
DX: M16.12 Unilateral primary osteoarthritis, left hip (principal)